=== PATIENT | female | born 1995 | race Caucasian/White ===

== ENCOUNTER 2017-03-20 12:06 | Emergency (ER) | payer MEDICAID ==
[2017-03-20 12:15] VITALS: BP 125/69; PULSE 63; TEMP 98.3; O2SAT 100
--- NOTE | 2017-03-20 12:39 | C.PDOC ---
<AndiErnestine - Last Filed: 03/20/17 12:36> History Per: Patient History/Exam Limitations: None Onset/Duration Of Symptoms: Days Current Symptoms Are (Timing): Still Present Quality (Ear): Pain W/Touch, Foreign Body <Meliton Trantlin Que - Last Filed: 03/20/17 12:48> Time Seen by Provider: 03/20/17 12:22 Chief Complaint (Nursing): Foreign Body Past Medical History - Medical History PMH: Bipolar Disorder, Depression - Social History Hx Alcohol Use: No Hx Substance Use: No - Immunization History Hx Tetanus Toxoid Vaccination: No Hx Influenza Vaccination: No Hx Pneumococcal Vaccination: No <AndiErnestine - Last Filed: 03/20/17 12:36> Reviewed: Historical Data, Nursing Documentation, Vital Signs Family History: States: No Known Family Hx <Meliton Trantlin Que - Last Filed: 03/20/17 12:48> Vital Signs: Last Vital Signs Temp 98.3 F 03/20/17 12:11 Pulse 63 03/20/17 12:11 Resp 16 03/20/17 12:11 BP 125/69 03/20/17 12:11 Pulse Ox 100 03/20/17 12:47 Review Of Systems Except As Marked, All Systems Reviewed And Found Negative. Constitutional: Negative for: Fever, Chills ENT: Positive for: Ear Pain Neurological: Negative for: Headache <Meliton Trantlin Que - Last Filed: 03/20/17 12:48> Physical Exam - Physical Exam Appears: Non-toxic, No Acute Distress Skin: Normal Color, Warm Head: Atraumatic, Normacephalic Ear(s): Left: Other (Small rubber clear tip seen in left ear canal, erythema and irritation to canal on lateral left ear) Oral Mucosa: Moist Extremity: Normal ROM, Capillary Refill (<2 seconds) Neurological/Psych: Oriented x3, Normal Speech <Juanis Tran Que - Last Filed: 03/20/17 12:48> ED Course And Treatment O2 Sat by Pulse Oximetry: 100 <Ernestine Escamilla - Last Filed: 03/20/17 12:36> O2 Sat by Pulse Oximetry: 100 (ra) Pulse Ox Interpretation: Normal <Juanis Tran Que - Last Filed: 03/20/17 12:48> Medical Decision Making <Ernestine Escamilla - Last Filed: 03/20/17 12:36> <Juanis Tran - Last Filed: 03/20/17 12:48> Medical Decision Making: Foreign body was removed from left ear with forceps S/P foreign body removal there is erythema and irritation to canal on lateral aspect Patient will be discharged with drops and advised to follow up with [facility] (Juanis Tran) Disposition Counseled Patient/Family Regarding: Diagnosis, Need For Followup, Rx Given - Disposition Disposition Time: 12:36 <Ernestine Escamilla - Last Filed: 03/20/17 12:36> <Juanis Tran - Last Filed: 03/20/17 12:48> - Disposition Referrals: Darlene Durham MD [Medical Doctor] - Disposition: HOME/ ROUTINE Condition: IMPROVED Additional Instructions: Please use antibiotic drops as prescribed. Follow up with Dr Durham in a few days. Tylenol for pain if needed. Prescriptions: Neomycin/Polymyxin/Hydrocortis [Cortisporin Otic Susp] 4 drop QID #1 bottle Instructions: Otitis Externa (ED), Ear Foreign Body (ED) Forms: General Discharge Instructions - Clinical Impression Clinical Impression: Foreign body of ear, left, Otitis externa of left ear <Ernestine Escamilla - Last Filed: 03/20/17 12:36> - PA / EXPERIMENTAL DISPLAY BUILDER / Resident Statement MD/DO has reviewed & agrees with the documentation as recorded. - Scribe Statement The provider has reviewed the documentation as recorded by the Scribe <Juanis Tran - Last Filed: 03/20/17 12:48> - Scribe Statement Monica Sevilla All medical record entries made by the Scribe were at my direction and personally dictated by me. I have reviewed the chart and agree that the record accurately reflects my personal performance of the history, physical exam, medical decision making, and the department course for this patient. I have also personally directed, reviewed, and agree with the discharge instructions and disposition. (Juanis Tran)
--- NOTE | 2017-03-20 12:51 | C.PDOC ---
History Of Present Illness 21 y/o female presents to ED with complaints of left ear pain and for removal of foreign body in ear. Patient states last night she took off left hearing aid ; saw the ineer tip was missing, but she thought it fell on floor and just couldn't find it. Today she went to hearing center where she was told the clear tip of hearing aid was inside ear and she was advised to come to ED for evaluation. Patient denies fever, chills, Headache or any other complaints at this time. Time Seen by Provider: 03/20/17 12:22 Chief Complaint (Nursing): Foreign Body History Per: Patient History/Exam Limitations: None Onset/Duration Of Symptoms: Days Quality (Ear): Pain W/Touch, Foreign Body Past Medical History Reviewed: Historical Data, Nursing Documentation, Vital Signs Vital Signs: Last Vital Signs Temp 98.3 F 03/20/17 12:11 Pulse 63 03/20/17 12:11 Resp 18 03/20/17 12:53 BP 125/69 03/20/17 12:11 Pulse Ox 100 03/20/17 14:17 - Medical History PMH: Bipolar Disorder, Depression Family History: States: No Known Family Hx - Social History Hx Alcohol Use: No Hx Substance Use: No - Immunization History Hx Tetanus Toxoid Vaccination: No Hx Influenza Vaccination: No Hx Pneumococcal Vaccination: No Review Of Systems Constitutional: Negative for: Fever, Chills ENT: Positive for: Ear Pain Neurological: Negative for: Headache Physical Exam - Physical Exam Appears: Non-toxic, No Acute Distress Skin: Normal Color, Warm Head: Atraumatic, Normacephalic Ear(s): Left: Other (Small clear rubber tip seen in left ear canal) Oral Mucosa: Moist Extremity: Normal ROM, Capillary Refill (<2 seconds) Neurological/Psych: Oriented x3 ED Course And Treatment O2 Sat by Pulse Oximetry: 100 (RA) Pulse Ox Interpretation: Normal Medical Decision Making Medical Decision Making: Foreign body removed with forceps S/P foreign body erythema and irritation to canal on lateral aspect Patient will be discharged with drops and advised to follow up with [facility] Disposition - Disposition Referrals: Darlene Durham MD [Medical Doctor] - Disposition: HOME/ ROUTINE Disposition Time: 12:50 Condition: IMPROVED Additional Instructions: Please use antibiotic drops as prescribed. Follow up with Dr Durham in a few days. Tylenol for pain if needed. Prescriptions: Neomycin/Polymyxin/Hydrocortis [Cortisporin Otic Susp] 4 drop QID #1 bottle Instructions: Otitis Externa (ED), Ear Foreign Body (ED) Forms: General Discharge Instructions - Clinical Impression Clinical Impression: Foreign body of ear, left, Otitis externa of left ear - PA / SUPERVISOR PLASMA / Resident Statement MD/DO has reviewed & agrees with the documentation as recorded. - Scribe Statement The provider has reviewed the documentation as recorded by the Jessicaibagustina Sevilla All medical record entries made by the Anastacia were at my direction and personally dictated by me. I have reviewed the chart and agree that the record accurately reflects my personal performance of the history, physical exam, medical decision making, and the department course for this patient. I have also personally directed, reviewed, and agree with the discharge instructions and disposition.
[2017-03-20 12:54] VITALS: RESP 18
== END 2017-03-20 12:54 | disposition home or self-care (01) ==
LOC: C.ER 12:06
DX: T16.2XXA Foreign body in left ear, initial encounter (principal); X58.XXXA Exposure to other specified factors, initial encounter; H60.92 Unspecified otitis externa, left ear

== ENCOUNTER 2017-08-31 11:29 | Emergency (ER) | payer MEDICAID ==
[2017-08-31 12:12] VITALS: RESP 18; TEMP 98
[2017-08-31 12:51] LABS: URINE BILIRUBIN NEGATIVE (NEGATIVE); URINE BLOOD 3+ (NEGATIVE); URINE COLOR Yellow (YELLOW); URINE GLUCOSE (UA) NORMAL (Normal); URINE KETONE NEGATIVE (NEGATIVE); URINE LEUKOCYTE ESTERASE TRACE Leu/uL (Negative); URINE PROTEIN 1+ mg/dL (NEGATIVE)
[2017-08-31 12:52] LABS: RBC URINE 396 /hpf (0-3)
[2017-08-31 12:53] LABS: URINE BACTERIA FEW (<OCC)
[2017-08-31 12:54] LABS: WBC URINE 15 /hpf (0-5)
--- NOTE | 2017-08-31 12:58 | C.PDOC ---
History Of Present Illness 22 year old female presents to the ED for evaluation of vaginal bleeding. Patient reports she was seen in the clinic for vaginal discharge, patient was diagnosed with chlamydia. Patient reports taking 1000 mg of Zithromax on 07/29 since then she states having loose non bloody stool and vaginal bleeding. Patient reports her LMP was on 08/15/17. Patient is concerned that the medication made her bleed. Patient denies fever, chills, abdominal pain, back pain. Time Seen by Provider: 08/31/17 11:41 Chief Complaint (Nursing): Female Genitourinary History Per: Patient History/Exam Limitations: no limitations Onset/Duration Of Symptoms: Days Current Symptoms Are (Timing): Still Present Severity: None Alleviating Factors: None Recent travel outside of the [place]: No Additional History Per: Patient Abnormal Vaginal Bleeding: Yes Last Menstral Period: 08/15/17 Past Medical History Reviewed: Historical Data, Nursing Documentation, Vital Signs Vital Signs: Last Vital Signs Temp 98.0 F 08/31/17 13:02 Pulse 64 08/31/17 13:02 Resp 18 08/31/17 13:02 BP 95/59 L 08/31/17 13:02 Pulse Ox 100 08/31/17 13:45 - Medical History PMH: Bipolar Disorder, Depression Surgical History: No Surg Hx Family History: States: Unknown Family Hx - Social History Hx Alcohol Use: No Hx Substance Use: No - Immunization History Hx Tetanus Toxoid Vaccination: No Hx Influenza Vaccination: No Hx Pneumococcal Vaccination: No Review Of Systems Constitutional: Negative for: Fever, Chills Cardiovascular: Negative for: Chest Pain Respiratory: Negative for: Cough, Shortness of Breath Gastrointestinal: Positive for: Diarrhea. Negative for: Nausea, Vomiting, Abdominal Pain Genitourinary: Positive for: Vaginal Discharge. Negative for: Dysuria, Vaginal Bleeding Musculoskeletal: Negative for: Back Pain Skin: Negative for: Rash Physical Exam - Physical Exam Appears: Non-toxic, No Acute Distress Skin: Normal Color, Warm, Dry Head: Atraumatic, Normacephalic Eye(s): bilateral: Normal Inspection, EOMI Nose: No Discharge Oral Mucosa: Moist Neck: Normal ROM, Supple Chest: Symmetrical Cardiovascular: Rhythm Regular, No Murmur Respiratory: Normal Breath Sounds, No Rales, No Rhonchi, No Wheezing Gastrointestinal/Abdominal: Soft, No Tenderness, No Distention, No Rebound Extremity: Normal ROM, No Pedal Edema, No Calf Tenderness, No Swelling Neurological/Psych: Oriented x3, Normal Speech, Other (No focal deficits) Gait: Steady ED Course And Treatment O2 Sat by Pulse Oximetry: 100 (On RA) Pulse Ox Interpretation: Normal Medical Decision Making Medical Decision Making: Impression: vaginal bleeding Plan: * UA UA negative Patient is well and in no acute distress. I explained antibiotics can cause upset stomach and diarrhea, but does not cause vaginal bleeding. There is likely change in cycle and not concern of further treatment necessary. Advise follow up with multi skilled operator. Disposition Counseled Patient/Family Regarding: Diagnosis, Need For Followup, Rx Given - Disposition Disposition: HOME/ ROUTINE Disposition Time: 12:57 Condition: STABLE Additional Instructions: Follow up with the clinic in 2-5 days for further evaluation. Return to the emergency department at any time if symptoms persist or worsen. You may call leather worker service for any assistance [phone]. Instructions: Menstruation (ED) Forms: [employer] (Swazi) - POA Present On Arrival: None - Clinical Impression Clinical Impression: Medication side effect, Vaginal bleeding, abnormal - PA / LINING MACHINE TENDER / Resident Statement MD/DO has reviewed & agrees with the documentation as recorded. - Scribe Statement The provider has reviewed the documentation as recorded by the Scribe Sudheer Montgomery All medical record entries made by the Scribe were at my direction and personally dictated by me. I have reviewed the chart and agree that the record accurately reflects my personal performance of the history, physical exam, medical decision making, and the department course for this patient. I have also personally directed, reviewed, and agree with the discharge instructions and disposition.
[2017-08-31 13:04] VITALS: BP 95/59; PULSE 64
[2017-08-31 13:42] VITALS: O2SAT 100
== END 2017-08-31 13:40 | disposition home or self-care (01) ==
LOC: C.ER 11:29
DX: N93.9 Abnormal uterine and vaginal bleeding, unspecified (principal); T36.3X5A Adverse effect of macrolides, initial encounter